=== PATIENT | male | born 2000 | race American Indian/Alaskan Native ===

== ENCOUNTER 2019-02-12 23:21 | Emergency (ER) | payer OTHER ==
[2019-02-13 00:01] VITALS: BP 122/75
== END 2019-02-13 09:17 | disposition left against medical advice (07) ==
LOC: ED 23:21
DX: S69.90XA Unspecified injury of unspecified wrist, hand and finger(s), initial encounter (principal); Z53.21 Procedure and treatment not carried out due to patient leaving prior to being seen by health care provider; X58.XXXA Exposure to other specified factors, initial encounter; Y93.89 Activity, other specified; Y92.89 Other specified places as the place of occurrence of the external cause; Y99.8 Other external cause status